=== PATIENT | male | born 1950 | race Caucasian/White ===

== ENCOUNTER 2017-04-03 20:05 | Emergency (ER) | payer OTHER ==
--- NOTE | 2017-04-03 20:59 | ED ORDER SUMMARY ---
..... 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) (20:04/03/2017 Redd CAMPOS) (Ack 20:14 AMcQuoid ER Tech1) (20:59 SRoberts R.N.) CMP Urgent (20:04/03/2017 Redd CAMPOS) (Ack 20:14 AMcQuoid ER Tech1) (20:59 SRoberts R.N.) UA-Culture if indicated Urgent (20:04/03/2017 Redd CAMPOS) (Ack 20:14 AMcQuoid ER Tech1) (Cancelled: Patient [id number] SRoberts R.N.) BNP Urgent (20:04/03/2017 Redd CAMPOS) (Ack 20:14 AMcQuoid ER Tech1) (20:59 SRoberts R.N.) Ethyl Alcohol Urgent (20:04/03/2017 Redd CAMPOS) (Ack 20:14 AMcQuoid ER Tech1) (20:59 SRoberts R.N.) CBC w Diff Urgent (20:04/03/2017 Redd CAMPOS) (Ack 20:14 AMcQuoid ER Tech1) (20:59 SRoberts R.N.) Pulse oximeter (20:04/03/2017 Redd CAMPOS) (Ack 20:14 AMcQuoid ER Tech1) (20:15 HSoule) EKG - ER Stat (20:04/03/2017 Redd CAMPOS) (Ack 20:14 AMcQuoid ER Tech1) (20:56 SRoberts R.N.) MEDICATION ORDERS: IV FLUIDS: IV NS : initial bolus 1000 mL (1000 mL/hr), then none - (NOW) (20:04/03/2017 Redd CAMPOS) (Ack 20:15 HSoule) (20:19 HSoule) ORDER SHEET NOTES: [Electronically signed by Radha Hart R.N. (22:18 04/03/2017)] [Electronically signed by Rosie Stroud MD (00:16 04/05/2017)] [Electronically locked/signed by Radha Hart R.N. (22:18 04/03/2017)]
--- NOTE | 2017-04-03 20:59 | ED CLINICAL REPORT ---
Clinical Report - Physicians/Mid Levels [facility] [address] [place] [address] 04/03/2017 20:08 Patient: TEODORA ABDALLA Time Seen: 1999. Arrived- By ambulance. Historian- patient and EMS personnel. HISTORY OF PRESENT ILLNESS Chief Complaint: INTOXICATED. ; generalized weakness. Unknown as to when symptoms started. Duration of substance abuse- years. Substances abused: Alcohol. Last drink less than 12 hours ago. No fever, chills, nausea, vomiting or diarrhea. No abdominal pain, tremors, seizure, agitation or delusions. No hallucinations or suicidal thoughts. Not confused or paranoid. Has not been depressed. The symptoms are described as moderate. No injuries noted. Similar symptoms previously: None. Recent medical care: Not recently seen/assessed. REVIEW OF SYSTEMS The patient has had generalized weakness, but not had weight loss. No sweats, headache, dizziness, chest pain or palpitations. No black stools, numbness, bloody stools, sore throat or difficulty breathing. No difficulty with urination, skin abscess, joint pain or enlarged lymph nodes. No difficulty walking. All systems otherwise negative, except as recorded above. PAST HISTORY Problems: Diabetes Mellitus. Hypertension. Depression. Additional Surgeries: Foot . Shoulder Surgery. Medications: Lisinopril Oral. MetFORMIN HCl Oral. Allergies: No Known Drug Allergy. SOCIAL HISTORY Regular heavy alcohol use. ADDITIONAL NOTES The nursing notes have been reviewed. PHYSICAL EXAM Appearance: Alert. No acute distress. (Patient answers questions appropriately. He smells of alcohol.). Head: Head atraumatic. Eyes: Pupils equal, round and reactive to light. ENT: Normal ENT inspection. Airway intact. Moist mucous membranes. Neck: Normal inspection. CVS: Normal heart rate and rhythm. Heart sounds normal. Pulses normal. Respiratory: No respiratory distress. Breath sounds normal. Abdomen: Soft and nontender. Back: Normal inspection. No CVA tenderness. Skin: Skin warm and dry. Normal skin color. No rash. Normal skin turgor. Extremities: Extremities exhibit normal ROM. No lower extremity edema. Neuro: Alert. Mood/affect normal. Speech normal. Cranial nerves normal (as tested). No cerebellar findings. No motor deficit. No sensory deficit. (Patient is appropriate and grossly oriented.). LABS, X-RAYS, AND EKG Laboratory Tests: CBC w Diff: (JENN: 04/03/2017 20:11) ( [facility] 04/03/2017 20:25) Final results Test Result Flag Units (Reference) WHITE BLOOD COUNT 11.8 H K/uL (4.5-11.5) RED BLOOD COUNT 5.03 M/uL (4.50-5.90) HEMOGLOBIN 16.4 gm/dL (13.5-17.5) HEMATOCRIT 48.1 % (41.0-53.0) MEAN CELL VOLUME 96 fL (80-100) MEAN CORPUSCULAR HGB 33 pg (26-34) MEAN CORPUSCULAR HGB CONC 34 g/dL (31-37) RED CELL DISTRIBUTION WIDTH 13.8 % (11.6-14.8) PLATELET COUNT 77 L K/uL (150-400) NEUTROPHIL % 85.2 H % (50-75) LYMPH % 9.2 L % (25-40) MONO % 5.1 % (3-14) EOSINOPHIL % 0.2 % (0-4) BASOPHIL % 0.3 % (0-2) BNP: (JENN: 04/03/2017 20:11) ( [facility] 04/03/2017 20:44) Final results Test Result Flag Units (Reference) B-TYPE NATRIURETIC PEPTIDE 15.3 pg/ml (5-100) CMP: (JENN: 04/03/2017 20:11) ( [facility] 04/03/2017 20:39) Final results Test Result Flag Units (Reference) GLUCOSE 143 H mg/dL (70-110) BUN 14 mg/dL (7-18) CREATININE 1.0 mg/dL (0.6-1.3) Estimated GFR >60 mL/min Estimated GFR- >60 mL/min Note: Persistent reduction over 3 months in eGFR<60 mL/min/1.73 m2 defines CKD. Patients with eGFR values>=60 mL/min/1.73 m2 may also have CKD if evidence ofpersistent proteinuria. Additional information may be foundat www.kidney.org. SODIUM 136 mmol/L (136-145) POTASSIUM 3.9 mmol/L (3.5-5.1) CHLORIDE 94 L mmol/L (98-107) CARBON DIOXIDE 17 L mmol/L (21-32) CALCIUM 8.0 L mg/dL (8.5-10.1) TOTAL PROTEIN 7.7 g/dL (6.4-8.2) ALBUMIN 4.1 g/dL (3.3-5.0) BILIRUBIN, TOTAL 1.1 H mg/dL (0.0-1.0) ALKALINE PHOSPHATASE 103 U/L (46-116) AST (SGOT) 87 H U/L (15-37) ALT (SGPT) 83 H U/L (12-78) ETHYL ALCOHOL 330 H mg/dL (3-10) . Pulse Oximetry: 04/03/2017 20:07 O2 saturation: 96%. (FIO2 - room air). Interpretation: normal. PROGRESS AND PROCEDURES Course of Care: Patient was given a 1 L bolus 0.9 normal saline in the emergency department. He was able to tolerate water by mouth as well. Laboratory studies were unremarkable, other than an elevated ethanol level, and I felt that as the patient was alert, coherent, and ambulatory without assistance, he was stable for discharge. Pt did refuse to leave, stating that he felt he should be admitted to the hospital for "2 or 3 days". I did advise him that he does not have a condition warranting admission at this time, though it would be a good idea for him to get help with his EtOH abuse. I have discussed with the pt that his PCP's office can help him with this. Pt still refused to leave, and ultimately, the police were called to escort him out (and ended up giving the pt a ride home). Patient counseled in person regarding the patient's stable condition, test results, diagnosis and need for follow-up. Concerns were addressed. Old medical records reviewed. Disposition: Discharged. Condition: stable. CLINICAL IMPRESSION Uncomplicated alcohol intoxication. Mild hyperglycemia INSTRUCTIONS No alcohol. Seek medical help to quit drinking. Warnings: GENERAL WARNINGS: Return or contact your physician immediately if your condition worsens or changes unexpectedly, if not improving as expected, or if other problems arise. Your Current Medications: CONTINUE TAKING THE FOLLOWING MEDICATIONS: Lisinopril Oral. MetFORMIN HCl Oral. Understanding of the discharge instructions verbalized by patient. Follow-up with: [facility], , , [address], , [place], [address] Follow up. Call for the next available appointment. (Electronically signed by Rosie Stroud MD 04/05/2017 0:16)
--- NOTE | 2017-04-03 20:59 | ED CLINICAL REPORT ---
Clinical Report - Physicians/Mid Levels [facility] [address] [place] [place] [address] 04/03/2017 20:08 Patient: TEODORA ABDALLA Time Seen: 2000. Arrived- By ambulance. Historian- patient and EMS personnel. HISTORY OF PRESENT ILLNESS Chief Complaint: INTOXICATED. ; generalized weakness. Unknown as to when symptoms started. Duration of substance abuse- years. Substances abused: Alcohol. Last drink less than 12 hours ago. No fever, chills, nausea, vomiting or diarrhea. No abdominal pain, tremors, seizure, agitation or delusions. No hallucinations or suicidal thoughts. Not confused or paranoid. Has not been depressed. The symptoms are described as moderate. No injuries noted. Similar symptoms previously: None. Recent medical care: Not recently seen/assessed. REVIEW OF SYSTEMS The patient has had generalized weakness, but not had weight loss. No sweats, headache, dizziness, chest pain or palpitations. No black stools, numbness, bloody stools, sore throat or difficulty breathing. No difficulty with urination, skin abscess, joint pain or enlarged lymph nodes. No difficulty walking. All systems otherwise negative, except as recorded above. PAST HISTORY Problems: Diabetes Mellitus. Hypertension. Depression. Additional Surgeries: Foot . Shoulder Surgery. Medications: Lisinopril Oral. MetFORMIN HCl Oral. Allergies: No Known Drug Allergy. SOCIAL HISTORY Regular heavy alcohol use. ADDITIONAL NOTES The nursing notes have been reviewed. PHYSICAL EXAM Appearance: Alert. No acute distress. (Patient answers questions appropriately. He smells of alcohol.). Head: Head atraumatic. Eyes: Pupils equal, round and reactive to light. ENT: Normal ENT inspection. Airway intact. Moist mucous membranes. Neck: Normal inspection. CVS: Normal heart rate and rhythm. Heart sounds normal. Pulses normal. Respiratory: No respiratory distress. Breath sounds normal. Abdomen: Soft and nontender. Back: Normal inspection. No CVA tenderness. Skin: Skin warm and dry. Normal skin color. No rash. Normal skin turgor. Extremities: Extremities exhibit normal ROM. No lower extremity edema. Neuro: Alert. Mood/affect normal. Speech normal. Cranial nerves normal (as tested). No cerebellar findings. No motor deficit. No sensory deficit. (Patient is appropriate and grossly oriented.). LABS, X-RAYS, AND EKG Laboratory Tests: CBC w Diff: (JENN: 04/03/2017 20:11) ( [facility] 04/03/2017 20:25) Final results Test Result Flag Units (Reference) WHITE BLOOD COUNT 11.8 H K/uL (4.5-11.5) RED BLOOD COUNT 5.03 M/uL (4.50-5.90) HEMOGLOBIN 16.4 gm/dL (13.5-17.5) HEMATOCRIT 48.1 % (41.0-53.0) MEAN CELL VOLUME 96 fL (80-100) MEAN CORPUSCULAR HGB 33 pg (26-34) MEAN CORPUSCULAR HGB CONC 34 g/dL (31-37) RED CELL DISTRIBUTION WIDTH 13.8 % (11.6-14.8) PLATELET COUNT 77 L K/uL (150-400) NEUTROPHIL % 85.2 H % (50-75) LYMPH % 9.2 L % (25-40) MONO % 5.1 % (3-14) EOSINOPHIL % 0.2 % (0-4) BASOPHIL % 0.3 % (0-2) BNP: (JENN: 04/03/2017 20:11) ( [facility] 04/03/2017 20:44) Final results Test Result Flag Units (Reference) B-TYPE NATRIURETIC PEPTIDE 15.3 pg/ml (5-100) CMP: (JENN: 04/03/2017 20:11) ( [facility] 04/03/2017 20:39) Final results Test Result Flag Units (Reference) GLUCOSE 143 H mg/dL (70-110) BUN 14 mg/dL (7-18) CREATININE 1.0 mg/dL (0.6-1.3) Estimated GFR >60 mL/min Estimated GFR- >60 mL/min Note: Persistent reduction over 3 months in eGFR<60 mL/min/1.73 m2 defines CKD. Patients with eGFR values>=60 mL/min/1.73 m2 may also have CKD if evidence ofpersistent proteinuria. Additional information may be foundat www.kidney.org. SODIUM 136 mmol/L (136-145) POTASSIUM 3.9 mmol/L (3.5-5.1) CHLORIDE 94 L mmol/L (98-107) CARBON DIOXIDE 17 L mmol/L (21-32) CALCIUM 8.0 L mg/dL (8.5-10.1) TOTAL PROTEIN 7.7 g/dL (6.4-8.2) ALBUMIN 4.1 g/dL (3.3-5.0) BILIRUBIN, TOTAL 1.1 H mg/dL (0.0-1.0) ALKALINE PHOSPHATASE 103 U/L (46-116) AST (SGOT) 87 H U/L (15-37) ALT (SGPT) 83 H U/L (12-78) ETHYL ALCOHOL 330 H mg/dL (3-10) . Pulse Oximetry: 04/03/2017 20:07 O2 saturation: 96%. (FIO2 - room air). Interpretation: normal. PROGRESS AND PROCEDURES Course of Care: Patient was given a 1 L bolus 0.9 normal saline in the emergency department. He was able to tolerate water by mouth as well. Laboratory studies were unremarkable, other than an elevated ethanol level, and I felt that as the patient was alert, coherent, and ambulatory without assistance, he was stable for discharge. Pt did refuse to leave, stating that he felt he should be admitted to the hospital for "2 or 3 days". I did advise him that he does not have a condition warranting admission at this time, though it would be a good idea for him to get help with his EtOH abuse. I have discussed with the pt that his PCP's office can help him with this. Pt still refused to leave, and ultimately, the police were called to escort him out (and ended up giving the pt a ride home). Patient counseled in person regarding the patient's stable condition, test results, diagnosis and need for follow-up. Concerns were addressed. Old medical records reviewed. Disposition: Discharged. Condition: stable. CLINICAL IMPRESSION Uncomplicated alcohol intoxication. Mild hyperglycemia INSTRUCTIONS No alcohol. Seek medical help to quit drinking. Warnings: GENERAL WARNINGS: Return or contact your physician immediately if your condition worsens or changes unexpectedly, if not improving as expected, or if other problems arise. Your Current Medications: CONTINUE TAKING THE FOLLOWING MEDICATIONS: Lisinopril Oral. MetFORMIN HCl Oral. Understanding of the discharge instructions verbalized by patient. Follow-up with: [facility], , , [address], , [place], [address] Follow up. Call for the next available appointment. (Electronically signed by Rosie Stroud MD 04/05/2017 0:16)
--- NOTE | 2017-04-03 20:59 | ED NURSING NOTES ---
Clinical Report - Nurses [place] [address] [place] [address] 04/03/2017 20:08 [id number] Triage time 20:07. Acuity: LEVEL 3. Chief Complaint: WEAKNESS (WEAKNESS, ETOH USE, NOT EATING OR DRINKING WATER.). Alert. No acute distress. REYNOLD COMA SCORE: [place] Coma Scale: 15- eyes open spontaneously (4); best verbal response- oriented x 4 (5); best motor response- obeys commands (6). --20:16 Radha Hart R.N. 20:07 04/03/17. BP: 150/74. HR: 100. RR: 20. O2 saturation: 96% on room air. Temp: 98.7 F. Pain level now: 0/10. --20:16 Radha Hart R.N. 20:07 04/03/17. BP: 150/74. HR: 100. RR: 20. O2 saturation: 96% on room air. Temp: 98.7 F. Pain level now: 0/10. --20:16 Radha Hart R.N. Weight: 90.7 kg stated. Height/Length: 68 inches Per Patient. BMI: 30.4. --20:14 Radha Hart R.N. Medications MetFORMIN HCl Oral. --20:10 Radha Hart R.N. Lisinopril Oral. --20:10 Radha Hart R.N. Medication/allergy information source: the patient. --20:16 Radha Hart R.N. Allergies No Known Drug Allergy. --20:10 Radha Hart R.N. History Arrived by EMS. Historian: patient. Primary physician (CAIN). Onset. (1 weeks ago). He has had weakness. Reports muscle aches. 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 See EMS report. Finger stick glucose performed (115). Upon arrival patient awake. PAST MEDICAL HX: Immunizations: status is unknown. SOCIAL HX: Smoker- current status unknown. Heavy alcohol use; consumes liquor daily. Patient smells of ETOH in the emergency department. No drug use. FALL RISK ASSESSMENT: Fall risk assessment completed. No fall risk identified. NUTRITIONAL RISK ASSESSMENT: The nutritional risk assessment revealed no deficiencies. FUNCTIONAL ASSESSMENT: Functional assessment: no impairments noted. LEARNING NEEDS ASSESSMENT: The learning needs assessment revealed no barriers. SKIN INTEGRITY ASSESSMENT: Skin integrity risk assessment completed. No skin integrity risk identified. --20:16 Radha Hart R.N. PROBLEMS: Hypertension. Diabetes Mellitus. Depression. --20:12 Radha Hart R.N. ADDITIONAL SURGERIES: Foot . Shoulder Surgery. --20:12 Radha Hart R.N. Interventions ID band on patient. To room. --20:16 Radha Hart R.N. PHYSICAL ASSESSMENT To room via stretcher. Patient gowned. GENERAL / NEURO / PSYCH: Alert. Oriented X 4. Appears in no acute distress. HEENT: Mucous membranes are pink. RESPIRATORY: Respirations not labored. CVS: Capillary refill less than 2 seconds. GI / : Abdomen nontender. SKIN: Skin intact. Skin is warm and dry. Normal skin turgor. --20:17 Radha Hart R.N. NURSING PROGRESS NOTES 20:14 04/03/2017 Site #1 started via IV in the right forearm with an 20g angiocath, with aseptic technique and good blood return; one attempt. Blood drawn: rainbow set. Labeled in the presence of the patient and sent to the lab. Saline lock flushed with 10 mL saline. --20:14 Marily Baltazar Patient gowned. Head of bed elevated. Two patient identifiers checked. Call light placed in reach. Side rails up x 2. Bed placed in lowest position. Brakes of bed on. Patient ready for evaluation. --20:17 Radha Hart R.N. 20:19 04/03/2017 Started bag #1 1000 mL IV Fluids IV NS (Saline); at 1000 mL/hr over 1 hour(s) via site #1. IV patency established. IV site checked: no pain, redness, or swelling. IV flushed thoroughly pre- and post-medication administration. --20:19 Marily Baltazar EKG time: (20:50). EKG was performed by a tech and shown to the ED physician. --21:37 Milly Bocanegra 20:30. Glucose: 163. --21:38 Milly Bocanegra 20:48 04/03/2017 Site #1 removed upon discharge. Catheter intact. Bandaid applied. --21:48 Radha Hart R.N. 21:35 04/03/2017 IV Fluids IV NS Discontinued: bag #1 infused. Total amount infused: 1000 mL. IV patency established. IV site checked: no pain, redness, or swelling. IV flushed thoroughly. --21:49 Radha Hart R.N. DISPOSITION / DISCHARGE 21:25 Patient refusing to leave; [employer] called for assistnace. --21:39 McQuoid, Angelica, ER Tech1 Condition at departure: improved. ( Patient dc'd by the provider. who spoke with the pt multible times. Patient wants second opinion about dx, and why he can't just "stay in hospital for a few days and rest"). --21:56 Radha Hart R.N. 21:47 04/03/17. BP: 135/77. HR: 72. RR: 18. O2 saturation: 98% on room air. Temp: deferred. Pain level now: 0/10. --21:56 Radha Hart R.N. ( Security called to escort to the waiting room, pt refused to comply. [place] police called to escort pt to the waiting room, spoke with the patient. Police dept agreed to transport patient home. Patient still refuses to sign discharge papers. Dr Dubois spoke with the patient while the police officers in the room. P left with the Police dept. DC time at 2210.). --22:18 Radah Hart R.N. Locked/Released at 04/03/2017 22:18 by Radha Hart R.N.
--- NOTE | 2017-04-03 20:59 | ED ORDER SUMMARY ---
..... 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) (20:04/03/2017 Redd CAMPOS) (Ack 20:14 AMcQuoid ER Tech1) (20:59 SRoberts R.N.) CMP Urgent (20:04/03/2017 Redd CAMPOS) (Ack 20:14 AMcQuoid ER Tech1) (20:59 SRoberts R.N.) UA-Culture if indicated Urgent (20:04/03/2017 Redd CAMPOS) (Ack 20:14 AMcQuoid ER Tech1) (Cancelled: Patient [id number]:48 SRoberts R.N.) BNP Urgent (20:04/03/2017 Redd CAMPOS) (Ack 20:14 AMcQuoid ER Tech1) (20:59 SRoberts R.N.) Ethyl Alcohol Urgent (20:04/03/2017 Redd CAMPOS) (Ack 20:14 AMcQuoid ER Tech1) (20:59 SRoberts R.N.) CBC w Diff Urgent (20:04/03/2017 Redd CAMPOS) (Ack 20:14 AMcQuoid ER Tech1) (20:59 SRoberts R.N.) Pulse oximeter (20:04/03/2017 Redd CAMPOS) (Ack 20:14 AMcQuoid ER Tech1) (20:15 HSoule) EKG - ER Stat (20:04/03/2017 Redd CAMPOS) (Ack 20:14 AMcQuoid ER Tech1) (20:56 SRoberts R.N.) MEDICATION ORDERS: IV FLUIDS: IV NS : initial bolus 1000 mL (1000 mL/hr), then none - (NOW) (20:04/03/2017 Redd CAMPOS) (Ack 20:15 HSoule) (20:19 HSoule) ORDER SHEET NOTES: [Electronically signed by Radha Hart R.N. (22:18 04/03/2017)] [Electronically signed by Rosie Stroud MD (00:16 04/05/2017)] [Electronically locked/signed by Radha Hart R.N. (22:18 04/03/2017)]
--- NOTE | 2017-04-03 20:59 | ED NURSING NOTES ---
Clinical Report - Nurses [place] [address] [place] [address] 04/03/2017 20:08 [id number] TRI[facility] Triage time 20:07. Acuity: LEVEL 3. Chief Complaint: WEAKNESS (WEAKNESS, ETOH USE, NOT EATING OR DRINKING WATER.). Alert. No acute distress. REYNOLD COMA SCORE: [place] Coma Scale: 15- eyes open spontaneously (4); best verbal response- oriented x 4 (5); best motor response- obeys commands (6). --20:16 Radha Hart R.N. 20:07 04/03/17. BP: 150/74. HR: 100. RR: 20. O2 saturation: 96% on room air. Temp: 98.7 F. Pain level now: 0/10. --20:16 Radha Hart R.N. 20:07 04/03/17. BP: 150/74. HR: 100. RR: 20. O2 saturation: 96% on room air. Temp: 98.7 F. Pain level now: 0/10. --20:16 Radha Hart R.N. Weight: 90.7 kg stated. Height/Length: 68 inches Per Patient. BMI: 30.4. --20:14 Radha Hart R.N. Medications MetFORMIN HCl Oral. --20:10 Radha Hart R.N. Lisinopril Oral. --20:10 Radha Hart R.N. Medication/allergy information source: the patient. --20:16 Radha Hart R.N. Allergies No Known Drug Allergy. --20:10 Radha Hart R.N. History Arrived by EMS. Historian: patient. Primary physician (CAIN). Onset. (1 weeks ago). He has had weakness. Reports muscle aches. Treatment GUYLINE OPERATOR: EMS treatment GUYLINE OPERATOR verbally communicated. See EMS report. Finger stick glucose performed (115). Upon arrival patient awake. PAST MEDICAL HX: Immunizations: status is unknown. SOCIAL HX: Smoker- current status unknown. Heavy alcohol use; consumes liquor daily. Patient smells of ETOH in the emergency department. No drug use. FALL RISK ASSESSMENT: Fall risk assessment completed. No fall risk identified. NUTRITIONAL RISK ASSESSMENT: The nutritional risk assessment revealed no deficiencies. FUNCTIONAL ASSESSMENT: Functional assessment: no impairments noted. LEARNING NEEDS ASSESSMENT: The learning needs assessment revealed no barriers. SKIN INTEGRITY ASSESSMENT: Skin integrity risk assessment completed. No skin integrity risk identified. --20:16 Radha Hart R.N. PROBLEMS: Hypertension. Diabetes Mellitus. Depression. --20:12 Radha Hart R.N. ADDITIONAL SURGERIES: Foot . Shoulder Surgery. --20:12 Radha Hart R.N. Interventions ID band on patient. To room. --20:16 Radha Hart R.N. PHYSICAL ASSESSMENT To room via stretcher. Patient gowned. GENERAL / NEURO / PSYCH: Alert. Oriented X 4. Appears in no acute distress. HEENT: Mucous membranes are pink. RESPIRATORY: Respirations not labored. CVS: Capillary refill less than 2 seconds. GI / : Abdomen nontender. SKIN: Skin intact. Skin is warm and dry. Normal skin turgor. --20:17 Radha Hart R.N. NURSING PROGRESS NOTES 20:14 04/03/2017 Site #1 started via IV in the right forearm with an 20g angiocath, with aseptic technique and good blood return; one attempt. Blood drawn: rainbow set. Labeled in the presence of the patient and sent to the lab. Saline lock flushed with 10 mL saline. --20:14 Marily Baltazar Patient gowned. Head of bed elevated. Two patient identifiers checked. Call light placed in reach. Side rails up x 2. Bed placed in lowest position. Brakes of bed on. Patient ready for evaluation. --20:17 Radha Hart R.N. 20:19 04/03/2017 Started bag #1 1000 mL IV Fluids IV NS (Saline); at 1000 mL/hr over 1 hour(s) via site #1. IV patency established. IV site checked: no pain, redness, or swelling. IV flushed thoroughly pre- and post-medication administration. --20:19 Marily Baltazar EKG time: (20:50). EKG was performed by a tech and shown to the ED physician. --21:37 Milly Bocanegra 20:30. Glucose: 163. --21:38 Milly Bocanegra 20:48 04/03/2017 Site #1 removed upon discharge. Catheter intact. Bandaid applied. --21:48 Radha Hart R.N. 21:35 04/03/2017 IV Fluids IV NS Discontinued: bag #1 infused. Total amount infused: 1000 mL. IV patency established. IV site checked: no pain, redness, or swelling. IV flushed thoroughly. --21:49 Radha Hart R.N. DISPOSITION / DISCHARGE 21:25 Patient refusing to leave; [employer] called for assistnace. --21:39 McQuoid, Angelica, ER Tech1 Condition at departure: improved. ( Patient dc'd by the provider. who spoke with the pt multible times. Patient wants second opinion about dx, and why he can't just "stay in hospital for a few days and rest"). --21:56 Radha Hart R.N. 21:47 04/03/17. BP: 135/77. HR: 72. RR: 18. O2 saturation: 98% on room air. Temp: deferred. Pain level now: 0/10. --21:56 Radha Hart R.N. ( Security called to escort to the waiting room, pt refused to comply. [place] police called to escort pt to the waiting room, spoke with the patient. Police dept agreed to transport patient home. Patient still refuses to sign discharge papers. Dr Dubois spoke with the patient while the police officers in the room. P left with the Police dept. DC time at 2210.). --22:18 Radha Hart R.N. Locked/Released at 04/03/2017 22:18 by Radha Hart R.N.
--- NOTE | 2017-04-05 00:17 | ED MAR SUMMARY ---
..... Medication Administration Record [facility] [address] [place] [address] Patient: TEODORA ABDALLA Visit ID: [id number] 66y, M Weight: 90.7 kg Height/Length: 68 in BMI: 30.4 ALLERGIES: No Known Drug Allergy Start 20:19 04/03/2017 Marily Baltazar,, Stop 21:35 04/03/2017 Radha Hart R.N. Medication Administered: IV NS (SALINE), Dose: IV Fluids over 1 hour(s), Rate: 1000 mL/hr, Dispensed: 1000 mL bag, Site: #1 right forearm. Medication Ordered: IV NS : initial bolus 1000 mL (1000 mL/hr), then none - (NOW).
--- NOTE | 2017-04-05 00:17 | ED MED RECONCILIATION SUMMARY ---
Patient: TEODORA ABDALLA Medication Reconciliation Report [facility] VisitID: [id number] [address] [place] [address] 66y, M Registration Date/Time: 04/03/2017 Weight: 90.7 kg Height/Length: 68 in. BMI: 30.4 ALLERGIES: No Known Drug Allergy The patient's Home Medications are listed below: CONTINUE TAKING THE FOLLOWING MEDICATIONS: Lisinopril Oral MetFORMIN HCl Oral The source(s) of the original Home Medication information: patient The following Medications were given to the patient in the Emergency Department: IV NS IV Fluids bolus 0, then 1000 mL/hr, administered: 04/03/2017 8:19:00 PM The following Medications were prescribed to the patient: None.
--- NOTE | 2017-04-05 00:17 | ED MED RECONCILIATION SUMMARY ---
Patient: TEODORA ABDALLA Medication Reconciliation Report [facility] VisitID: [id number] [address] [place] [address] 66y, M Registration Date/Time: 04/03/2017 Weight: 90.7 kg Height/Length: 68 in. BMI: 30.4 ALLERGIES: No Known Drug Allergy The patient's Home Medications are listed below: CONTINUE TAKING THE FOLLOWING MEDICATIONS: Lisinopril Oral MetFORMIN HCl Oral The source(s) of the original Home Medication information: patient The following Medications were given to the patient in the Emergency Department: IV NS IV Fluids bolus 0, then 1000 mL/hr, administered: 04/03/2017 8:19:00 PM The following Medications were prescribed to the patient: None.
--- NOTE | 2017-04-05 00:17 | ED MAR SUMMARY ---
..... Medication Administration Record [facility] [address] [place] [address] Patient: TEODORA ABDALLA Visit ID: [id number] 66y, M Weight: 90.7 kg Height/Length: 68 in BMI: 30.4 ALLERGIES: No Known Drug Allergy Start 20:19 04/03/2017 Marily Baltazar,, Stop 21:35 04/03/2017 Radha Hart R.N. Medication Administered: IV NS (SALINE), Dose: IV Fluids over 1 hour(s), Rate: 1000 mL/hr, Dispensed: 1000 mL bag, Site: #1 right forearm. Medication Ordered: IV NS : initial bolus 1000 mL (1000 mL/hr), then none - (NOW).
--- NOTE | 2017-04-05 00:17 | ED DISCHARGE INSTRUCTIONS ---
Patient: TEODORA ABDALLA General Instructions [facility] VisitID: [id number] [address], [place] [address] 66y, M Registration Date/Time: 04/03/2017 Uncomplicated alcohol intoxication. Mild hyperglycemia INSTRUCTIONS No alcohol. Seek medical help to quit drinking. Warnings: GENERAL WARNINGS: Return or contact your physician immediately if your condition worsens or changes unexpectedly, if not improving as expected, or if other problems arise. Your Current Medications: CONTINUE TAKING THE FOLLOWING MEDICATIONS: Lisinopril Oral. MetFORMIN HCl Oral. Understanding of the discharge instructions verbalized by patient. Follow-up with: [facility], , , [address], [place], [address] Follow up. Call for the next available appointment. ADDITIONAL INFORMATION Alcohol Intoxication Alcohol intoxication occurs when you drink alcohol faster than your liver can remove it from your system. Alcohol intoxication affects your judgment and coordination. Very high blood alcohol levels can cause coma, very slow breathing and even . If you drink alcohol every day, this may gradually cause permanent damage to your liver, brain, heart, pancreas and other organs. Alcohol use during may cause permanent damage to the growing baby. Home Care: Do not drink any more alcohol. DO NOT DRIVE until all effects of the alcohol have worn off. Get lots of rest over the next few days. Drink plenty of water and other non-alcoholic liquids. Try to eat regular meals. If you have been drinking heavily on a daily basis, you may go through alcohol withdrawl. This is also called the shakes or DTs. The usual symptoms last 3 to 4 days and may include nervousness, shakiness, nausea, sweating or sleeplessness. During this time, it is best that you stay with family or friends who can help and support you. You can also admit yourself to a residential detox program. If your symptoms are severe, contact your doctor for medicines to help. Follow Up: If alcohol is causing a problem in your life, these and other organizations can help you: Alcoholics Anonymous offers support through a self-help fellowship. There are no dues or fees. See the Yellow Pages and call for time and place of meetings. www.aa.org [place] offers support to families of alcohol users. 612.634.2724 www.al-anon.org National [place] On Alcoholism And Drug Dependence 244-899-5778 www.ncadd.org There are also inpatient or residential alcohol detox programs. Check the Internet or phonebook Yellow Pages under Drug Abuse & Treatment Centers. Get Prompt Medical Attention if any of the following occur: there) Diabetes with High Blood Sugar You have been treated for high blood sugar (hyperglycemia). This may be becauseof an infection or other illness;eating too many sweets or starches ; not taking enough insulin. Home care High blood sugar may cause symptoms that you can learn to recognize, such as these: If you feel like your blood sugar may be too high, measure it using a blood or urine test. If it is above your usual range, use the "sliding scale"rRegular insulin dose your doctor gave you to correct this. If no "sliding scale" orders were given, contact your doctor for further advice. If your blood sugar is over 300, and you can't reach your doctor, go to the hospital emergency room. Monitor and write down your blood sugars - and insulin dose, if you take insulin - atleast twice a day. Do this before breakfast and before dinner. Do this for the next 3 to 5 days. Follow-up care Follow up with your health care provderduring the next week to review your blood sugar records. You will find out if you need to adjust your dose of insulin or other medicine for blood sugar. When to seek medical care Get prompt medical attention if either of these occur: High blood sugar.Symptoms are frequent urination, feeling dizzy, thirst, headache, nausea or vomiting, abdominal pain, and drowsiness or loss of consciousness. Low blood sugar. Symptoms are fatigue, headache, shakes, excess sweating, hunger, anxiety, reduced vision, drowsiness, weakness, confusion or loss of consciousness, and seizure. You have been given the following additional information: Alcohol Intoxication Diabetic Hyperglycemia (Electronically signed by Rosie Stroud MD 04/05/2017 0:16)
--- NOTE | 2017-04-05 00:17 | ED DISCHARGE INSTRUCTIONS ---
Patient: TEODORA ABDALLA General Instructions [facility] VisitID: [id number] [address], [place] [address] 66y, M Registration Date/Time: 04/03/2017 Uncomplicated alcohol intoxication. Mild hyperglycemia INSTRUCTIONS No alcohol. Seek medical help to quit drinking. Warnings: GENERAL WARNINGS: Return or contact your physician immediately if your condition worsens or changes unexpectedly, if not improving as expected, or if other problems arise. Your Current Medications: CONTINUE TAKING THE FOLLOWING MEDICATIONS: Lisinopril Oral. MetFORMIN HCl Oral. Understanding of the discharge instructions verbalized by patient. Follow-up with: [facility], , , [address], [place], [address] Follow up. Call for the next available appointment. ADDITIONAL INFORMATION Alcohol Intoxication Alcohol intoxication occurs when you drink alcohol faster than your liver can remove it from your system. Alcohol intoxication affects your judgment and coordination. Very high blood alcohol levels can cause coma, very slow breathing and even . If you drink alcohol every day, this may gradually cause permanent damage to your liver, brain, heart, pancreas and other organs. Alcohol use during may cause permanent damage to the growing baby. Home Care: Do not drink any more alcohol. DO NOT DRIVE until all effects of the alcohol have worn off. Get lots of rest over the next few days. Drink plenty of water and other non-alcoholic liquids. Try to eat regular meals. If you have been drinking heavily on a daily basis, you may go through alcohol withdrawl. This is also called the shakes or DTs. The usual symptoms last 3 to 4 days and may include nervousness, shakiness, nausea, sweating or sleeplessness. During this time, it is best that you stay with family or friends who can help and support you. You can also admit yourself to a residential detox program. If your symptoms are severe, contact your doctor for medicines to help. Follow Up: If alcohol is causing a problem in your life, these and other organizations can help you: Alcoholics Anonymous offers support through a self-help fellowship. There are no dues or fees. See the Yellow Pages and call for time and place of meetings. www.aa.org [place] offers support to families of alcohol users. 115.137.3535 www.al-anon.org National [place] On Alcoholism And Drug Dependence 443-079-9006 www.ncadd.org There are also inpatient or residential alcohol detox programs. Check the Internet or phonebook Yellow Pages under Drug Abuse & Treatment Centers. Get Prompt Medical Attention if any of the following occur: there) Diabetes with High Blood Sugar You have been treated for high blood sugar (hyperglycemia). This may be becauseof an infection or other illness;eating too many sweets or starches ; not taking enough insulin. Home care High blood sugar may cause symptoms that you can learn to recognize, such as these: If you feel like your blood sugar may be too high, measure it using a blood or urine test. If it is above your usual range, use the "sliding scale"rRegular insulin dose your doctor gave you to correct this. If no "sliding scale" orders were given, contact your doctor for further advice. If your blood sugar is over 300, and you can't reach your doctor, go to the hospital emergency room. Monitor and write down your blood sugars - and insulin dose, if you take insulin - atleast twice a day. Do this before breakfast and before dinner. Do this for the next 3 to 5 days. Follow-up care Follow up with your health care provderduring the next week to review your blood sugar records. You will find out if you need to adjust your dose of insulin or other medicine for blood sugar. When to seek medical care Get prompt medical attention if either of these occur: High blood sugar.Symptoms are frequent urination, feeling dizzy, thirst, headache, nausea or vomiting, abdominal pain, and drowsiness or loss of consciousness. Low blood sugar. Symptoms are fatigue, headache, shakes, excess sweating, hunger, anxiety, reduced vision, drowsiness, weakness, confusion or loss of consciousness, and seizure. You have been given the following additional information: Alcohol Intoxication Diabetic Hyperglycemia (Electronically signed by Rosie Stroud MD 04/05/2017 0:16)
== END 2017-04-03 22:10 | disposition home or self-care (01) ==
LOC: ED SRH 20:05
DX: F10.120 Alcohol abuse with intoxication, uncomplicated (principal); E11.65 Type 2 diabetes mellitus with hyperglycemia; I10 Essential (primary) hypertension; Z79.84 Long term (current) use of oral hypoglycemic drugs; Z79.899 Other long term (current) drug therapy
CPT/HCPCS: 90098; 90100; 91320; 92010; 95059